=== PATIENT | male | born 1990 | race Caucasian/White ===

== ENCOUNTER 2023-09-14 03:28 | Emergency (ER) | payer OTHER, SELFPAY ==
[2023-09-14] MEDS ORDERED: Morphine 4 MG/ML VIAL ONE (03:40)
[2023-09-14] MEDS ORDERED: Ondansetron PF 4 MG/2 ML Vial ONE (03:41)
[2023-09-14] MEDS ORDERED: Albuterol 2.5 MG (3 mL) NEB ONE (05:21)
[2023-09-14] MEDS ORDERED: Calcium Chloride 1 GM/10 ML Abboject SYRINGE ONE (05:23)
[2023-09-14] MEDS ORDERED: Cefepime 2 GM VIAL ONE (05:23)
[2023-09-14] MEDS ORDERED: Sodium Bicarb 50 MEQ/50 ML Abboject 8.4% SYRINGE ONE (05:23)
[2023-09-14] MEDS ORDERED: INSULIN REGULAR IN 0.9 % NACL 100 UNITS/100 ML BAG ONE (05:24)
[2023-09-14] MEDS ORDERED: Sodium Chloride 3% 100 ML IVPB SCH (06:00)
[2023-09-14] MEDS ORDERED: D5 0.9% NS w/ 20 mEq KCl 1,000 ML IV SCH (06:00)
[2023-09-14] MEDS ORDERED: Promethazine HCl 25 MG in Sodium Chloride 0.9% 50 ML IVPB SCH (06:00)
[2023-09-14] MEDS ORDERED: Vancomycin 1 GM VIAL ONE (06:08)
[2023-09-14] MEDS ORDERED: NOREPINEPHRINE 8 MG/250 ML-D5W 250 ML ONE (06:09)
[2023-09-14 08:16] LABS: #Basophils 0.01 10x3/uL (0.0-0.2); #Monocytes 0.27 10x3/uL (0.0-1.1); #Neutrophils 6.89 10x3/uL (1.5-8.4); %Basophils 0.1 % (0.0-2.0); %Lymphocytes 10.3 % (18.0-47.0); %Monocytes 3.4 % (0.0-10.0); %Neutrophils 85.6 % (40.0-75.0); Hematocrit 37.2 % (38.8-50.0); Hemoglobin 14.5 g/dL (13.5-17.5); Mean Corpuscular Hemoglobin 30.9 pg (27.0-33.0); Mean Corpuscular Volume 79.1 fL (81.2-95.1); Mean Platelet Volume 10.9 fL (7.4-10.4); Platelet Count 418 10x3/uL (150-450); RBC Distribution Width 11.7 % (11.5-14.5); White Blood Cell (WBC) Count 8.1 10x3/uL (3.5-10.5)
[2023-09-14 08:28] LABS: Anion Gap 23 mmol/L (10-20); BUN (Urea Nitrogen) 15 mg/dL (8.9-20.6); Calc. Creatinine Clearance 0 mL/min (70-130); Calcium 9.5 mg/dL (7.8-10.44); Carbon Dioxide 10 mmol/L (22-29); Chloride 87 mmol/L (98-107); Estimated GFR 119; Glucose 316 mg/dL (70-105); Potassium 4.9 mmol/L (3.5-5.1)
[2023-09-14 08:29] LABS: Sodium 115 mmol/L (136-145)
[2023-09-14 08:30] LABS: Critical Call Chemistry NUR.AEB @0603
[2023-09-14 08:46] LABS: Critical Call Chemistry NUR.AEB@0503; Potassium 6.1 mmol/L (3.5-5.1); Sodium 114 mmol/L (136-145)
[2023-09-14 08:48] LABS: Albumin 3.7 g/dL (3.5-5.0); Anion Gap 25 mmol/L (10-20); BUN (Urea Nitrogen) 15 mg/dL (8.9-20.6); Bilirubin, Total 1.1 mg/dL (0.2-1.2); Calc. Creatinine Clearance 0 mL/min (70-130); Calcium 8.8 mg/dL (7.6-10.4); Carbon Dioxide 13 mmol/L (22-29); Chloride 82 mmol/L (98-107); Estimated GFR 118; Globulin 2.9 g/dL (2.4-3.5); Glucose 329 mg/dL (70-105); Protein, Total 6.6 g/dL (6.0-8.3)
[2023-09-14 08:49] LABS: ALT (SGPT) 14 U/L (8-55); AST (SGOT) 12 U/L (5-34); Alkaline Phosphatase 73 U/L (40-110); Lipase 24 U/L (8-78); Magnesium 1.4 mg/dL (1.6-2.6)
[2023-09-14 08:53] LABS: Troponin I Less than 0.010 ng/mL (< 0.028)
[2023-09-14 09:06] LABS: Lactic Acid 2.4 mmol/L (0.5-2.2)
[2023-09-14 09:26] LABS: Clarity Clear (Clear); Leukocyte Negative (Negative); Nitrite Negative (Negative); Protein, Urine (Dipstick) Negative (Neg-Trace); Specific Gravity, Urine 1.025 (1.005-1.030)
[2023-09-14 09:27] LABS: Bilirubin Negative (Negative); Blood, Urine Negative (Negative); Glucose, Urine (Dipstick) >=1000 mg/dL (Negative); Ketone, Urine 150 mg/dL (Negative); Urobilinogen Normal mg/dL (Less than 2)
[2023-09-14 09:28] LABS: Bacteria/HPF None Seen HPF (None Seen); RBC/HPF 0-3 HPF (0-3); Squamous Epithelial 0-3 HPF (0-3); WBC/HPF 0-3 HPF (0-3)
[2023-09-14] MEDS ORDERED: Iopamidol 300 61% 100 ML VIAL FS ONE (10:31)
[2023-09-15 06:44] LABS: Actual Bicarbonate (HCO3v) 15.1 mEq/L (22-28); Analyzer IN Cardio CS ER; Base Excess -11.4 mEq/L (-2 - +2); Calcium, Ionized (venous) 1.15 mmol/L (1.16-1.32); Chloride (VBG) 82 mmol/L (98-106); Hematocrit-VBG 45 % (42.0-52.0); Hemoglobin (Hb) 15.3 g/dL (13.2-17.3); Potassium (VBG) 6.03 mmol/L (3.70-5.30); Puncture Site Other Site; RapidComm Collect By cbn; Sodium 114 mmol/L (133-146); pH (venous) 7.237 (7.32-7.43)
== END 2023-09-14 06:53 | disposition short-term general hospital (02) ==
LOC: CSHERS 03:28
DX: J18.9 Pneumonia, unspecified organism (principal); E10.10 Type 1 diabetes mellitus with ketoacidosis without coma; E87.6 Hypokalemia; E87.5 Hyperkalemia; Z79.4 Long term (current) use of insulin; I10 Essential (primary) hypertension
CPT/HCPCS: 36416; 71045; 74177; 81001; 82010; 82805; 83605; 83690; 83735; 83880; 83930; 84443; 84484; 87040; 87086; 93005; 93010; 96361; 96365; 96367; 96374; 96375; J0692; J1815; J2270; J2405; J2550; J3370; J3480; J7131; J7611; Q9967